=== PATIENT | male | born 1965 | race Caucasian/White ===

== ENCOUNTER 2020-02-19 13:02 | Inpatient (IN) ==
--- NOTE | 2020-02-19 13:44 | Emergency Department Note ---
History of Present Illness General Chief complaint: Cardiac Assessment Stated complaint: PT THINKS HE HAD A HEART ATTACK THIS MORNING Time Seen by Provider: 02/19/20 13:14 Source: patient Mode of arrival: ambulatory Limitations: no limitations History of Present Illness This patient is a 54-year-old male who presents to the emergency department for evaluation of an episode of chest pain which occurred this morning. Patient states that he was sitting at his computer about 5 hours ago when he developed chest pain and pressure with radiation into the back. He states he then developed a headache and jaw pain. Symptoms overall lasted 10 to 15 minutes. There was no shortness of breath or nausea/vomiting associated with the episode. He was not diaphoretic, although does note he typically has 2-3 episodes of excessive sweating daily. Patient denies any other episodes leading up to this. He is currently asymptomatic. Patient states he has been dealing with multiple infections over the past 6 months. He states he has been on 7 rounds of antibiotics and has been treated for bronchitis and pneumonia. He reports he has had persistent right-sided sore throat, various intermittent swelling of his lymph nodes and sinus pressure. The patient denies any recent fevers or cough. He reports he has some chronic shortness of breath due to his COPD and smoking. He denies any personal history of heart disease and is unaware of his family history. He does report a history of hypertension, hyperlipidemia and diabetes. Home Medications Home Medications Medication Instructions Recorded Confirmed Type amitriptyline 150 mg tablet 150 mg PO QPM 03/10/19 02/19/20 History fluoxetine 40 mg capsule 80 mg PO QAM cap 03/10/19 02/19/20 History fluticasone 100 mcg-salmeterol 50 1 puffs INH Q12H 03/10/19 02/19/20 History mcg/dose blistr powdr for inhalation fluticasone propionate 50 2 sprays INTNAS BID gm 03/10/19 02/19/20 History mcg/actuation nasal spray,suspension gabapentin 800 mg tablet 800 mg PO QID 03/10/19 02/19/20 History hydrochlorothiazide 25 mg tablet 25 mg PO QAM 03/10/19 02/19/20 History insulin lispro 100 unit/mL 12 units SQ TIDM 03/10/19 02/19/20 History subcutaneous cartridge losartan 50 mg tablet 50 mg PO QAM 03/10/19 02/19/20 History omeprazole 40 mg capsule,delayed 40 mg PO BID 03/10/19 02/19/20 History release pravastatin 20 mg tablet 20 mg PO QPM 03/10/19 02/19/20 History propranolol 10 mg tablet 20 mg PO BID 03/10/19 02/19/20 History tamsulosin 0.4 mg capsule 0.4 mg PO QPM cap 03/10/19 02/19/20 History Lantus U-100 Insulin 94 unit SUBCUT HS 09/30/19 02/19/20 History exenatide microspheres 2 mg SUBCUT Q7D 09/30/19 02/19/20 History Cannibis 0 mg INHALATION UD PRN 12/15/19 02/19/20 History ipratropium bromide [Atrovent HFA] 2 puff INHALATION QID 12/15/19 02/19/20 History metformin 1,000 mg PO BID 12/15/19 02/19/20 History aspirin 81 mg PO QAM 02/19/20 02/19/20 History lorazepam 0.5 mg PO BID PRN 02/19/20 02/19/20 History prednisone 60 mg PO DAILY 02/19/20 02/19/20 History tiotropium bromide [Spiriva with 1 cap INHALATION QAM 02/19/20 02/19/20 History HandiHaler] tramadol 50 mg PO Q6H PRN 02/19/20 02/19/20 History Allergies Allergy/AdvReac Type Severity Reaction Status Date / Time penicillin V Allergy Intermediate Severe Verified 02/19/20 13:53 Itching. Iodinated Contrast Media Allergy Unknown Difficulty Verified 02/19/20 13:53 [Iodinated Contrast- Oral Breathing and IV Dye] Penicillins Allergy Unknown ITCHINESS Verified 02/19/20 13:53 lisinopril Allergy Swelling Verified 02/19/20 13:53 of Lip/Tongue/Throat camphor AdvReac Intermediate SKIN Verified 02/19/20 13:53 IRRITATION WITH CHANDRA SALDANA gadobutrol AdvReac Intermediate SOB, Verified 02/19/20 13:53 HIVES, ITCHING, CHEST PAIN menthol AdvReac Intermediate SKIN Verified 02/19/20 13:53 IRRITATION WITH CHANDRA SALDANA methyl salicylate AdvReac Intermediate SKIN Verified 02/19/20 13:53 IRRITATION WITH CHANDRA SALDANA dapagliflozin [From Farxiga] AdvReac Rash Verified 02/19/20 13:53 mirtazapine [From Remeron] AdvReac Anxiety Verified 02/19/20 13:53 risperidone [From Risperdal] AdvReac Rash Verified 02/19/20 13:53 Carboxymethylcellulose AdvReac Intermediate SKIN Uncoded 02/19/20 13:53 IRRITATION WITH CHANDRA SALDANA Past Med/Surg History Medical History Acid reflux (Chronic) Anxiety Arthritis (Chronic) Cardiac murmur HX Chronic obstructive pulmonary disease Depression Diabetes (Chronic) Fibromyalgia (Chronic) Headache (Chronic) Heart disease (Chronic) High cholesterol (Chronic) History of hepatitis C (Resolved) TREATED-NO LONGER POSITIVE Hypertension (Chronic) Lumbago (Chronic) Meralgia paresthetica of both lower extremities (Acute) F/U DR KEELY GARZA GHBettye SOB (shortness of breath) on exertion STAIRS AND LONG DISTANCES FLAT SURFACES Temporal arteritis Tourette's (Chronic) Surgical History History of arthroscopy RIGHT KNEE History of colonoscopy History of esophagogastroduodenoscopy (EGD) Hx of hernia repair (Resolved) X 2 Social History Preferred Language: Cuban Communication Ability: Effective Administrative Associate Required: No Beliefs That Will Affect Care: Yazidi marital status: Current Living Situation: Spouse current occupational status: disabled Other Information That Helps Us Care for You: No Feels Safe at Home: Yes Safety Concerns: Feels Safe At This Time Smoking Status: Current every day smoker Tobacco Type: cigarettes ; Cigarettes Per Day: 40 ; Do You Dip or Chew Tobacco: No ; Second Hand Exposure: No ; Tobacco Cessation Education Requested by Patient: Yes Hx Alcohol Use: No Hx Substance Use: Yes substance use type: marijuana Substance Use Type Other:: SMOKES OR SUBLINGUAL MARIJUANA HS Last Used Substance: Days (ago) Review of Systems A total of 10 systems reviewed and were otherwise negative Physical Exam Vital Signs Vital Signs - 24 hr 02/19/20 13:07 02/19/20 13:32 02/19/20 15:00 Temperature 36.7 C Temperature Source Oral Pulse Rate 89 Pulse Rate [Apical] 84 Pulse Rhythm Regular Pulse Strength Normal Respiratory Rate 18 18 Respiratory Effort / Characteristics Non-Labored Spontaneous Non-Labored Respiratory Depth Normal Normal Respiratory Pattern Regular Blood Pressure 167/98 H Blood Pressure [Right Arm] 132/85 Blood Pressure Mean 121 Blood Pressure Mean [Right Arm] 100 Blood Pressure Position Lying Pulse Oximetry 96 96 95 Oxygen Delivery Method Room Air Room Air Room Air Sepsis Recent Fever Within 48 Hours No Sepsis Action Taken by Nursing No Action Required 02/19/20 16:26 Temperature Temperature Source Pulse Rate 83 Pulse Rate [Apical] Pulse Rhythm Pulse Strength Respiratory Rate 17 Respiratory Effort / Characteristics Respiratory Depth Respiratory Pattern Blood Pressure 146/82 H Blood Pressure [Right Arm] Blood Pressure Mean 100 Blood Pressure Mean [Right Arm] Blood Pressure Position Pulse Oximetry Oxygen Delivery Method Sepsis Recent Fever Within 48 Hours Sepsis Action Taken by Nursing VITALS: Vitals are noted on the nurse's note and reviewed by myself. Vital signs stable. GENERAL: This is a 54-year-old male, in no acute distress, well-developed well- nourished. SKIN: The skin was without rashes. EARS: External auditory canals clear, tympanic membranes pearly gilman without erythema or effusion bilaterally. EYES: Pupils equal round and reactive to light and accommodation. NOSE: Patent, turbinates without inflammation or discharge. MOUTH: Mucous membranes moist. Tonsils are not enlarged. Pharynx without erythema or exudate. NECK: Supple without nuchal rigidity. No lymphadenopathy. HEART: Regular rate and rhythm without murmurs gallops or rubs. LUNGS: Clear to auscultation bilaterally without wheezes, rales or rhonchi. No retractions or accessory muscle use. ABDOMEN: Obese abdomen, soft, nontender to palpation. NEURO: Patient was alert and oriented to person place and time. Course Consultations Consultation #1: Smiley Lala PA-C - [facility] hospitalist Administered Medications Amitriptyline HCl (Elavil) 150 mg PO QPM [facility] Stop: 03/20/20 20:59 Last Admin: 02/19/20 21:01 Dose: 150 mg Documented by: [id number] Famotidine (Pepcid) 20 mg PO BID [facility] Stop: 03/20/20 20:59 Last Admin: 02/19/20 21:01 Dose: 20 mg Documented by: [id number] Fluticasone Propionate (Flonase) 2 sprays WERO BID [facility] Stop: 03/20/20 20:59 Last Admin: 02/19/20 21:02 Dose: 2 sprays Documented by: [id number] Gabapentin (Neurontin) 800 mg PO QID [facility] Stop: 03/20/20 18:34 Last Admin: 02/19/20 21:11 Dose: 800 mg Documented by: [id number] Admin: 02/19/20 21:01 Dose: 800 mg Documented by: [id number] Insulin Aspart (Novolog Flexpen) 0 units SC ACHS [facility] Stop: 03/20/20 18:34 Last Admin: 02/19/20 21:17 Dose: Not Given Documented by: [id number] Cosigned by: [id number] Admin: 02/19/20 21:00 Dose: Not Given Documented by: [id number] Cosigned by: [id number] Insulin Glargine (Lantus) 60 units SC HS [facility] Stop: 03/20/20 20:59 Last Admin: 02/19/20 21:03 Dose: 60 units Documented by: [id number] Cosigned by: [id number] Ipratropium [place] (Atrovent Hfa) 2 puffs INH QID [facility] Stop: 03/20/20 18:34 Last Admin: 02/19/20 21:46 Dose: Not Given Documented by: [id number] Admin: 02/19/20 19:15 Dose: 2 puffs Documented by: [id number] Nicotine (Nicoderm Cq) 21 mg TD HS [facility] Stop: 03/20/20 20:59 Last Admin: 02/19/20 21:02 Dose: 21 mg Documented by: [id number] Pantoprazole Sodium (Protonix) 40 mg PO BID [facility] Stop: 03/20/20 20:59 Last Admin: 02/19/20 21:01 Dose: 40 mg Documented by: [id number] Pravastatin Sodium (Pravachol) 20 mg PO QPM [facility] Stop: 03/20/20 20:59 Last Admin: 02/19/20 21:01 Dose: 20 mg Documented by: [id number] Propranolol HCl (Inderal) 20 mg PO BID [facility] Stop: 03/20/20 20:59 Last Admin: 02/19/20 21:01 Dose: 20 mg Documented by: [id number] Tamsulosin HCl (Flomax) 0.4 mg PO QPM [facility] Stop: 03/20/20 20:59 Last Admin: 05/09/20 21:02 Dose: 0.4 mg Documented by: [id number] Tramadol HCl (Ultram) 50 mg PO Q6H PRN PRN Reason: Pain Stop: 03/20/20 18:34 Last Admin: 02/19/20 21:15 Dose: 50 mg Documented by: [id number] Medical Decision Making Differential Diagnosis Differential diagnosis includes acute coronary syndrome, pulmonary embolism, pneumothorax, pericarditis, myocarditis, endocarditis, anxiety, musculoskeletal pain, GERD, costochondritis, pneumonia, among others. Home Medications Current Medication List: was personally reviewed by me Laboratory Data Attestation: I reviewed the patient's lab results. Result diagrams: 02/19/20 13:30 02/19/20 13:30 Lab Results 02/19/20 02/19/20 02/19/20 Range/Units 13:30 13:30 13:30 WBC 11.97 H (4.8-10.8) K/uL RBC 4.77 (4.7-6.1) M/uL Hgb 13.9 L (14.0-18.0) g/dL Hct 42.8 (42-52) % MCV 89.7 (80-100) fL MCH 29.1 (25-34) pg MCHC 32.5 (32-36) g/dL RDW Std Deviation 52.1 H (36.4-46.3) fL RDW Coeff of June 16.1 H (11.5-14.5) % Plt Count 198 (130-400) K/uL MPV 9.4 (7.4-10.4) fL Immature Gran % (Auto) 3.2 % Neut % (Auto) 69.9 % Lymph % (Auto) 19.1 % Parmer % (Auto) 6.9 % Eos % (Auto) 0.6 % Baso % (Auto) 0.3 % Immature Gran # (Auto) 0.38 H (0.00-0.02) K/uL Neut # (Auto) 8.36 H (1.4-6.5) K/uL Lymph # (Auto) 2.29 (1.2-3.4) K/uL Parmer # (Auto) 0.83 H (0.11-0.59) K/uL Eos # (Auto) 0.07 (0-0.5) K/uL Baso # (Auto) 0.04 (0-0.2) K/uL Absolute Nucleated RBC 0.03 H (0-0) K/uL Nucleated RBC % (auto) 0.3 % PT 10.4 (9.0-12.0) Seconds INR 1.0 (0.9-1.1) APTT 23.4 (21.0-31.0) Seconds PTT Ratio 0.8 D-Dimer (0-500) ug/L FEU Sodium 137 (136-145) mmol/L Potassium 4.2 (3.5-5.1) mmol/L Chloride 99 (98-107) mmol/L Carbon Dioxide 29 (21-32) mmol/L Anion Gap 9.0 (3-11) BUN 11 (7-18) mg/dl Creatinine 0.96 (0.6-1.4) mg/dl Est Cr Clr Drug Dosing 101.9 ml/min Est GFR ( Amer) 102.0 Est GFR (Non-Af Amer) 88.0 BUN/Creatinine Ratio 11.8 (10-20) Glucose 146 H (70-99) mg/dl Calcium 9.0 (8.5-10.1) mg/dl Total Bilirubin 0.3 (0.2-1) mg/dl AST 25 (15-37) U/L ALT 69 (12-78) U/L Alkaline Phosphatase 104 (45-117) U/L Troponin I < 0.015 (0-0.045) ng/ml NT-Pro-B Natriuret Pep 63 (0-900) pg/ml Total Protein 7.5 (6.4-8.2) gm/dl Albumin 3.0 L (3.4-5.0) gm/dl Globulin 4.5 H (2.5-4.0) gm/dl Albumin/Globulin Ratio 0.7 L (0.9-2) 02/19/20 Range/Units 13:30 WBC (4.8-10.8) K/uL RBC (4.7-6.1) M/uL Hgb (14.0-18.0) g/dL Hct (42-52) % MCV (80-100) fL MCH (25-34) pg MCHC (32-36) g/dL RDW Std Deviation (36.4-46.3) fL RDW Coeff of June (11.5-14.5) % Plt Count (130-400) K/uL MPV (7.4-10.4) fL Immature Gran % (Auto) % Neut % (Auto) % Lymph % (Auto) % Parmer % (Auto) % Eos % (Auto) % Baso % (Auto) % Immature Gran # (Auto) (0.00-0.02) K/uL Neut # (Auto) (1.4-6.5) K/uL Lymph # (Auto) (1.2-3.4) K/uL Parmer # (Auto) (0.11-0.59) K/uL Eos # (Auto) (0-0.5) K/uL Baso # (Auto) (0-0.2) K/uL Absolute Nucleated RBC (0-0) K/uL Nucleated RBC % (auto) % PT (9.0-12.0) Seconds INR (0.9-1.1) APTT (21.0-31.0) Seconds PTT Ratio D-Dimer 230 (0-500) ug/L FEU Sodium (136-145) mmol/L Potassium (3.5-5.1) mmol/L Chloride (98-107) mmol/L Carbon Dioxide (21-32) mmol/L Anion Gap (3-11) BUN (7-18) mg/dl Creatinine (0.6-1.4) mg/dl Est Cr Clr Drug Dosing ml/min Est GFR ( Amer) Est GFR (Non-Af Amer) BUN/Creatinine Ratio (10-20) Glucose (70-99) mg/dl Calcium (8.5-10.1) mg/dl Total Bilirubin (0.2-1) mg/dl AST (15-37) U/L ALT (12-78) U/L Alkaline Phosphatase (45-117) U/L Troponin I (0-0.045) ng/ml NT-Pro-B Natriuret Pep (0-900) pg/ml Total Protein (6.4-8.2) gm/dl Albumin (3.4-5.0) gm/dl Globulin (2.5-4.0) gm/dl Albumin/Globulin Ratio (0.9-2) Imaging Data Attestation: I personally reviewed and interpreted this imaging study as follows: Radiologist's Impression: XR chest 1V portable CLINICAL HISTORY: 54 years-old Male presenting with chest pain. TECHNIQUE: Portable upright AP view of the chest was obtained. COMPARISON: 12/15/2019. FINDINGS: Cardiomediastinal silhouette normal. The prior left basilar patchy opacities have resolved. Minimal linear left mid to lower lung opacities remain. No large effusion or pneumothorax. Osseous structures normal. Upper abdomen normal. IMPRESSION: 1. Resolution of prior left basilar pneumonia. No new focal infiltrate. ECG Data Attestation: I personally reviewed and interpreted this ECG as follows: Indication: + chest pain Rate (beats per minute): 83 Rhythm: + normal sinus ECG Intervals/blocks: + Left anterior fascicular block and + Right Bundle branch block ECG ST segments: + Normal ST segments Change: no significant change Blood Pressure Blood Pressure Findings: Normal blood pressure MDM Narrative The patient is a 54-year-old male who presents today complaining of an episode of chest pain which occurred this morning. Pain is resolved now, but certainly the patient's history is concerning for a possible cardiac source. Patient has multiple risk factors including diabetes, hyperlipidemia, hypertension, obesity and smoking. Labs revealed no leukocytosis, anemia or concerning electrolyte abnormalities. Troponin was not elevated. Chest x-ray unremarkable. EKG with no obvious ischemic changes. Case was discussed with the [facility] hospitalist service, who agreed to evaluate the patient for further care. Impression & Plan Substernal chest pain Discharge Plan Visit Data *Final* Discharge Date/Time: 02/19/20 17:46 Chief Complaint: Cardiac Assessment Stated Complaint: PT THINKS HE HAD A HEART ATTACK THIS MORNING ED Provider: Manuel Owen ED Midlevel Provider: Aubree Theodore Discharge Problem: Substernal chest pain Patient Disposition: Admitted As Inpatient Discharge Instructions Interventions: ED Discharge Assessment Last Done: 02/19/20 17:46
[2020-02-19 13:47] LABS: Basophils # (auto) 0.04 K/uL (0-0.2); Basophils % (auto) 0.3 %; Eosinophils # (auto) 0.07 K/uL (0-0.5); Eosinophils % (auto) 0.6 %; Hematocrit (blood only) 42.8 % (42-52); Hemoglobin 13.9 g/dL (14.0-18.0); Immature Granulocytes # (auto) 0.38 K/uL (0.00-0.02); Immature Granulocytes % (auto) 3.2 %; Lymphocytes # (auto) 2.29 K/uL (1.2-3.4); Lymphocytes % (auto) 19.1 %; Mean Corpuscular Hemoglobin 29.1 pg (25-34); Mean Corpuscular Hgb Conc 32.5 g/dL (32-36); Mean Corpuscular Volume 89.7 fL (80-100); Mean Platelet Volume 9.4 fL (7.4-10.4); Monocytes # (auto) 0.83 K/uL (0.11-0.59); Monocytes % (auto) 6.9 %; Neutrophils # (auto) 8.36 K/uL (1.4-6.5); Neutrophils % (auto) 69.9 %; Nucleated RBC # (auto) 0.03 K/uL (0-0); Nucleated RBC % (auto) 0.3 %; Platelet Count 198 K/uL (130-400); RDW Coefficient of Variation 16.1 % (11.5-14.5); RDW Standard Deviation 52.1 fL (36.4-46.3); Red Blood Count 4.77 M/uL (4.7-6.1); White Blood Count 11.97 K/uL (4.8-10.8)
[2020-02-19 13:55] LABS: Alanine Aminotransferase 69 U/L (12-78); Aspartate Aminotransferase 25 U/L (15-37); BUN Creatinine Ratio 11.8 (10-20); Blood Urea Nitrogen 11 mg/dl (7-18); Carbon Dioxide 29 mmol/L (21-32); Chloride 99 mmol/L (98-107); Creatinine Clr Calc Pharmacy 101.9 ml/min; Glucose 146 mg/dl (70-99); Potassium 4.2 mmol/L (3.5-5.1); Sodium 137 mmol/L (136-145)
[2020-02-19 13:57] LABS: Partial Thromboplastin Ratio 0.8; Partial Thromboplastin Time 23.4 Seconds (21.0-31.0); Prothrombin Time 10.4 Seconds (9.0-12.0)
[2020-02-19 14:00] LABS: Albumin Globulin Ratio 0.7 (0.9-2); Alkaline Phosphatase 104 U/L (45-117); Bilirubin,Total 0.3 mg/dl (0.2-1); Globulin 4.5 gm/dl (2.5-4.0); Total Protein 7.5 gm/dl (6.4-8.2); Troponin I < 0.015 ng/ml (0-0.045)
--- NOTE | 2020-02-19 14:00 | XRay Report ---
XR chest 1V portable CLINICAL HISTORY: 54 years-old Male presenting with chest pain. TECHNIQUE: Portable upright AP view of the chest was obtained. COMPARISON: 12/15/2019. FINDINGS: Cardiomediastinal silhouette normal. The prior left basilar patchy opacities have resolved. Minimal l inear left mid to lower lung opacities remain. No large effusion or pneumothorax. Osseous structures normal. Upper abdomen normal. IMPRESSION: 1. Resolution of prior left basilar pneumonia. No new focal infiltrate. ACT 112: Negative or not required by law. Electronically signed by: Parker Scott M.D. 02/19/2020 1:58 PM
--- NOTE | 2020-02-19 15:59 | History & Physical Report ---
Date of Service February 19, 2020 Assessment & Plan (1) Chest pain: Atypical in nature but has a lot of risk factors for CAD-smoker, HTN, DMII, age, gender BNP and D-dimer both negative CXR nothing acute - Admit to tele - Trend cardiac biomarkers, initial set was negative - EKG reviewed as above showing RBBB but unchanged compared to previous EKG - Check 2 D echo - If negative enzymes can consider a stress test but he cannot exercise so would have to stay until Mon for Nuc Stress vs Dobutamine stress ECHO-defer to Cardiology on decision to perform -Daily EKG -Consult cardiology, Dr. Henning (2) Hypertension: BPs controlled -Continue aspirin 81 mg daily, losartan 50 mg, propranolol, previously was on 20 mg twice daily-- reports this has recently been increased but is unsure what the dose is. (3) High cholesterol: -Recheck lipid panel with a.m. labs -Continue pravastatin 20 mg every afternoon (4) Diabetes: -Type 2 - Rechecking A1c with am labs -Holding metformin, continue Lantus but will lower the dose while here as most patients eat healthier in hospital and lowering dose of daily prednisone to 40mg -ISS with Accu-Cheks ACHS (5) History of hepatitis C: -Resolved, treated. (6) Acid reflux: -History of such (7) Fibromyalgia: -Chronic - Smokes marijuana for chronic pain and anxiety daily, has prescription -continue ELavil 150mg qhs, tramadol prn (8) Temporal arteritis: Suspected dx in early December and started on prednisone 60mg but never had TA bx and no improvement in symptoms of headache, jaw pain -Having lot of side effects of prednisone, wants to taper down; has been on an extremely high dose for 2 months -recommend outpt f/u with Rheum-he used to see Dr. Cazares in [place] -check ESR in AM -reduce prednisone to 40mg daily (9) Anxiety: - Smokes marijuana for chronic pain and anxiety daily, has prescription -continue fluoxetine, ativan prn (10) Depression: -Continue fluoxetine 80 mg every morning (11) Chronic obstructive pulmonary disease: -Continue Spiriva, LABA/ICS, does not wear O2 at baseline (12) Tobacco use: -Continues to smoke 1.5 pack/day, cessation was encouraged, will order a nicotine patch -previously tried Chantix felt was worsening his depression. (13) Morbid obesity with BMI of 40.0-44.9, adult: -Diet and exercise to be encouraged upon discharge - heart healthy/diabetic diet -BMI 40.6 (14) Sore throat: chronic for 4-6 months, more right sided Has taken multiple rounds of abx and does not have signs of infection Given prednisone use, morbid obesity, heavy smoking history, and h/o GERD, likely 2/2 acid reflux and/or allergic rhinitis -add on Pepcid 20mg bid -encouraged smoking cessation -continue PPI bid -f/u with ENT outpt -continue FLonase -check CT neck given h/o heavy cigarette use (15) Headache: chronic, not improved with high dose prednisone -taper down prednisone -tramadol prn f/u outpt has a h/o demyelinating lesions on MRI and has not been seen by Neuro in years- f/u with Neuro as outpt (16) Tourette's: -Chronic (17) DVT prophylaxis: - teds CODE: Full code Dispo: From home, likely to remain in the hospital x 1-2 days History of Present Illness Chief Complaint: Chest pain Primary Care Provider: José Osullivan, This is a 54-year-old male with PMHx of HTN, HLD, DM type II, suspected temporal arteritis on long-term steroids, COPD, tobacco use, history of hepatitis C now resolved, GERD, anxiety, depression, Tourette's syndrome, fibromyalgia who presents with acute crushing substernal and left-sided chest pain radiating to the back and up into the bilateral which occurred this morning and lasted for approximately 15 minutes. He was sitting at the computer session around 8 am when this occurred. He had not been previously doing anything strenuous and leads a fairly sedentary lifestyle. It went away with lying down to rest. He has had this happen before but not as extreme in the past, however the patient cannot quantify or name the timeframe. He denies any family history as he has only recently reconnected with his biological mother within the last 6 months, and the only thing he knows about his father is that "he left and is a complete dickhead". He does not know any biological siblings. He mentions that he has been being treated for a sinus infection for the last 3- 4 months, and has gone through 4 rounds of antibiotics. He is finishing his last day of Augmentin x10 days tonight. He reports there is no symptom improvement and still has a sore throat. He had a MRI of the brain conducted in the middle of December however this was negative for findings consistent with sinusitis. Patient also reports having other issues such as fibromyalgia and chronic pain at baseline. His anxiety has been much worse in light of COVID-19. Patient does not exercise at baseline. He smokes cigarettes 1.5 PPD x45 years and uses marijuana daily for anxiety, has a prescription for such. He has taken all his normally scheduled medication. Allergies Allergy/AdvReac Type Severity Reaction Status Date / Time penicillin V Allergy Intermediate Severe Verified 02/19/20 13:53 Itching. Iodinated Contrast Media Allergy Unknown Difficulty Verified 02/19/20 13:53 [Iodinated Contrast- Oral Breathing and IV Dye] Penicillins Allergy Unknown ITCHINESS Verified 02/19/20 13:53 lisinopril Allergy Swelling Verified 02/19/20 13:53 of Lip/Tongue/Throat camphor AdvReac Intermediate SKIN Verified 02/19/20 13:53 IRRITATION WITH CHANDRA SALDANA gadobutrol AdvReac Intermediate SOB, Verified 02/19/20 13:53 HIVES, ITCHING, CHEST PAIN menthol AdvReac Intermediate SKIN Verified 02/19/20 13:53 IRRITATION WITH CHANDRA SALDANA methyl salicylate AdvReac Intermediate SKIN Verified 02/19/20 13:53 IRRITATION WITH CHANDRA SALDANA dapagliflozin [From Farxiga] AdvReac Rash Verified 02/19/20 13:53 mirtazapine [From Remeron] AdvReac Anxiety Verified 02/19/20 13:53 risperidone [From Risperdal] AdvReac Rash Verified 02/19/20 13:53 Carboxymethylcellulose AdvReac Intermediate SKIN Uncoded 02/19/20 13:53 IRRITATION WITH CHANDRA SALDANA Home Medications Home Medications Medication Instructions Recorded Confirmed Type amitriptyline 150 mg tablet 150 mg PO QPM 03/10/19 02/19/20 History fluoxetine 40 mg capsule 80 mg PO QAM cap 03/10/19 02/19/20 History fluticasone 100 mcg-salmeterol 50 1 puffs INH Q12H 03/10/19 02/19/20 History mcg/dose blistr powdr for inhalation fluticasone propionate 50 2 sprays INTNAS BID gm 03/10/19 02/19/20 History mcg/actuation nasal spray,suspension gabapentin 800 mg tablet 800 mg PO QID 03/10/19 02/19/20 History hydrochlorothiazide 25 mg tablet 25 mg PO QAM 03/10/19 02/19/20 History insulin lispro 100 unit/mL 12 units SQ TIDM 03/10/19 02/19/20 History subcutaneous cartridge losartan 50 mg tablet 50 mg PO QAM 03/10/19 02/19/20 History omeprazole 40 mg capsule,delayed 40 mg PO BID 03/10/19 02/19/20 History release pravastatin 20 mg tablet 20 mg PO QPM 03/10/19 02/19/20 History propranolol 10 mg tablet 20 mg PO BID 03/10/19 02/19/20 History tamsulosin 0.4 mg capsule 0.4 mg PO QPM cap 03/10/19 02/19/20 History Lantus U-100 Insulin 94 unit SUBCUT HS 09/30/19 02/19/20 History exenatide microspheres 2 mg SUBCUT Q7D 09/30/19 02/19/20 History Cannibis 0 mg INHALATION UD PRN 12/15/19 02/19/20 History ipratropium bromide [Atrovent HFA] 2 puff INHALATION QID 12/15/19 02/19/20 History metformin 1,000 mg PO BID 12/15/19 02/19/20 History aspirin 81 mg PO QAM 02/19/20 02/19/20 History lorazepam 0.5 mg PO BID PRN 02/19/20 02/19/20 History prednisone 60 mg PO DAILY 02/19/20 02/19/20 History tiotropium bromide [Spiriva with 1 cap INHALATION QAM 02/19/20 02/19/20 History HandiHaler] tramadol 50 mg PO Q6H PRN 02/19/20 02/19/20 History Past Med/Surg History Medical History (Updated 02/19/20 @ 19:46 by Amalia Juárez MD) Acid reflux (Chronic) Anxiety Arthritis (Chronic) Cardiac murmur HX Chronic obstructive pulmonary disease Depression Diabetes (Chronic) Fibromyalgia (Chronic) Headache (Chronic) Heart disease (Chronic) High cholesterol (Chronic) History of hepatitis C (Resolved) TREATED-NO LONGER POSITIVE Hypertension (Chronic) Lumbago (Chronic) Meralgia paresthetica of both lower extremities (Acute) F/U DR KEELY GARZA GHBettye SOB (shortness of breath) on exertion STAIRS AND LONG DISTANCES FLAT SURFACES Temporal arteritis Tourette's (Chronic) Surgical History History of arthroscopy RIGHT KNEE History of colonoscopy History of esophagogastroduodenoscopy (EGD) Hx of hernia repair (Resolved) X 2 Social History Preferred Language: Macedonian Communication Ability: Effective Software Specialist Required: No Beliefs That Will Affect Care: Jew marital status: Current Living Situation: Spouse current occupational status: disabled Other Information That Helps Us Care for You: No Feels Safe at Home: Yes Safety Concerns: Feels Safe At This Time Smoking Status: Current every day smoker Tobacco Type: cigarettes ; Cigarettes Per Day: 40 ; Do You Dip or Chew Tobacco: No ; Second Hand Exposure: No ; Tobacco Cessation Education Requested by Patient: Yes Hx Alcohol Use: No Hx Substance Use: Yes substance use type: marijuana Substance Use Type Other:: SMOKES OR SUBLINGUAL MARIJUANA HS Last Used Substance: Days (ago) Review of Systems Review of Systems: Constitutional: No fever, sweats or chills Eyes: No diplopia, no worsening or blurred vision ENT: normal hearing, no trouble swallowing, + sore throat Respiratory: + occasional cough, no sputum, + dyspnea on exertion Cardiovascular: As per HPI. Currently no chest pain, tightness or palpitations Abdomen: No pain, nausea, vomiting, diarrhea or constipation Musculoskeletal: + chronic joint pain, calf pain, swelling Neurologic: No weakness, numbness/tingling, or balance problems Psychiatric: No anxiety or depression Skin: No rash or itch Physical Exam Physical Exam: General: awake, alert, no apparent distress, + appears red faced, + multiple tattoos over upper extremities and chest Head: Normocephalic, atraumatic ENT: PERRL, EOMI, no pharyngeal exudate, no erythema or white exudate or thrush, mucous membranes moist, no pain elicited with maxillary sinus palpation Chest: Clear to auscultation, on room air, no adventitious breath sounds, + pain redemonstrated with palpation of chest anteriorly Cardiac: Regular rate and rhythm, no murmur, unable to assess JVD due to body habitus, normal peripheral pulses, good capillary refill Abdominal: NABS x 4 quadrants, + distended, + vertical scar going down mid abdomen ( s/p hernia repair), soft, nontender to palpation, no rebound, guarding or tenderness Extremities: Normal inspection, no peripheral edema or erythema, calfs nontender to palpation Psych: Normal mood and affect Neuro: AAO x 3, strength intact bilaterally and rated 5/5, no motor deficits, speech is clear, no peripheral sensory deficits Results & Data Results & Data ([facility]) Vital Signs (Past 12 Hours) Vital Signs Temp Pulse Pulse Resp BP BP Pulse Ox 02/19/20 15:00 84 18 132/85 95 02/19/20 13:32 96 02/19/20 13:07 36.7 C 89 18 167/98 H 96 Laboratory Results 02/19/20 02/19/20 02/19/20 Range/Units 13:30 13:30 13:30 WBC (4.8-10.8) K/uL RBC (4.7-6.1) M/uL Hgb (14.0-18.0) g/dL Hct (42-52) % MCV (80-100) fL MCH (25-34) pg MCHC (32-36) g/dL RDW Std Deviation (36.4-46.3) fL RDW Coeff of June (11.5-14.5) % Plt Count (130-400) K/uL MPV (7.4-10.4) fL Immature Gran % (Auto) % Neut % (Auto) % Lymph % (Auto) % Marin % (Auto) % Eos % (Auto) % Baso % (Auto) % Immature Gran # (Auto) (0.00-0.02) K/uL Neut # (Auto) (1.4-6.5) K/uL Lymph # (Auto) (1.2-3.4) K/uL Marin # (Auto) (0.11-0.59) K/uL Eos # (Auto) (0-0.5) K/uL Baso # (Auto) (0-0.2) K/uL Absolute Nucleated RBC (0-0) K/uL Nucleated RBC % (auto) % PT 10.4 (9.0-12.0) Seconds INR 1.0 (0.9-1.1) APTT 23.4 (21.0-31.0) Seconds PTT Ratio 0.8 D-Dimer 230 (0-500) ug/L FEU Sodium 137 (136-145) mmol/L Potassium 4.2 (3.5-5.1) mmol/L Chloride 99 (98-107) mmol/L Carbon Dioxide 29 (21-32) mmol/L Anion Gap 9.0 (3-11) BUN 11 (7-18) mg/dl Creatinine 0.96 (0.6-1.4) mg/dl Est Cr Clr Drug Dosing 101.9 ml/min Est GFR ( Amer) 102.0 Est GFR (Non-Af Amer) 88.0 BUN/Creatinine Ratio 11.8 (10-20) Glucose 146 H (70-99) mg/dl Calcium 9.0 (8.5-10.1) mg/dl Total Bilirubin 0.3 (0.2-1) mg/dl AST 25 (15-37) U/L ALT 69 (12-78) U/L Alkaline Phosphatase 104 (45-117) U/L Troponin I < 0.015 (0-0.045) ng/ml NT-Pro-B Natriuret Pep 63 (0-900) pg/ml Total Protein 7.5 (6.4-8.2) gm/dl Albumin 3.0 L (3.4-5.0) gm/dl Globulin 4.5 H (2.5-4.0) gm/dl Albumin/Globulin Ratio 0.7 L (0.9-2) 02/19/20 Range/Units 13:30 WBC 11.97 H (4.8-10.8) K/uL RBC 4.77 (4.7-6.1) M/uL Hgb 13.9 L (14.0-18.0) g/dL Hct 42.8 (42-52) % MCV 89.7 (80-100) fL MCH 29.1 (25-34) pg MCHC 32.5 (32-36) g/dL RDW Std Deviation 52.1 H (36.4-46.3) fL RDW Coeff of June 16.1 H (11.5-14.5) % Plt Count 198 (130-400) K/uL MPV 9.4 (7.4-10.4) fL Immature Gran % (Auto) 3.2 % Neut % (Auto) 69.9 % Lymph % (Auto) 19.1 % Marin % (Auto) 6.9 % Eos % (Auto) 0.6 % Baso % (Auto) 0.3 % Immature Gran # (Auto) 0.38 H (0.00-0.02) K/uL Neut # (Auto) 8.36 H (1.4-6.5) K/uL Lymph # (Auto) 2.29 (1.2-3.4) K/uL Marin # (Auto) 0.83 H (0.11-0.59) K/uL Eos # (Auto) 0.07 (0-0.5) K/uL Baso # (Auto) 0.04 (0-0.2) K/uL Absolute Nucleated RBC 0.03 H (0-0) K/uL Nucleated RBC % (auto) 0.3 % PT (9.0-12.0) Seconds INR (0.9-1.1) APTT (21.0-31.0) Seconds PTT Ratio D-Dimer (0-500) ug/L FEU Sodium (136-145) mmol/L Potassium (3.5-5.1) mmol/L Chloride (98-107) mmol/L Carbon Dioxide (21-32) mmol/L Anion Gap (3-11) BUN (7-18) mg/dl Creatinine (0.6-1.4) mg/dl Est Cr Clr Drug Dosing ml/min Est GFR ( Amer) Est GFR (Non-Af Amer) BUN/Creatinine Ratio (10-20) Glucose (70-99) mg/dl Calcium (8.5-10.1) mg/dl Total Bilirubin (0.2-1) mg/dl AST (15-37) U/L ALT (12-78) U/L Alkaline Phosphatase (45-117) U/L Troponin I (0-0.045) ng/ml NT-Pro-B Natriuret Pep (0-900) pg/ml Total Protein (6.4-8.2) gm/dl Albumin (3.4-5.0) gm/dl Globulin (2.5-4.0) gm/dl Albumin/Globulin Ratio (0.9-2) Diagnostic Findings XR chest 1V portable CLINICAL HISTORY: 54 years-old Male presenting with chest pain. TECHNIQUE: Portable upright AP view of the chest was obtained. COMPARISON: 12/15/2019. FINDINGS: Cardiomediastinal silhouette normal. The prior left basilar patchy opacities have resolved. Minimal linear left mid to lower lung opacities remain. No large effusion or pneumothorax. Osseous structures normal. Upper abdomen normal. IMPRESSION: 1. Resolution of prior left basilar pneumonia. No new focal infiltrate. ACT 112: Negative or not required by law. Electronically signed by: Parker Scott M.D. 02/19/2020 1:58 PM ECG Additional Comments: 19-FEB-2020 13:18:14 [facility]-EDSTAT ROUTINE RETRIEVAL Normal sinus rhythm Possible Left atrial enlargement Right bundle branch block Left anterior fascicular block Bifascicular block Abnormal ECG When compared with ECG of 15-DEC-2019 13:46, No significant change was found 25mm/s 10mm/mV 150Hz 9.0.9 12SL 241 ANTHONY: 16 Referred by: PROTOCOL Unconfirmed Vent. rate 83 BPM NH interval 170 ms QRS duration 126 ms QT/QTc 378/444 ms P-R-T axes 71 -61 58 Code Status & VTE Plan Code Status Full code -discussed with patient at bedside Supervising Physician Co-Signing Physician Notes PA Supervision Note: I personally saw and examined the patient. I verified all bailey points and agree with THADDEUS Lala with the following exceptions and/or additions: Additions/Changes made to A/P as above Pt here with atypical chest pain with lots of risk factors, ongoing chronic issues as well. History and ROS reviewed Vitals reviewed Morbidly obese, smells of cigarettes Anicteric sclerae, EOMI, OP clear, mild erythema throughout posterior oropharynx, no masses seen, with large tongue Neck +TTP mild over rt anterior neck, no AMBIKA palpable RRR no mgr Lungs diminished throughout, occasional wheeze and rhonchus Abd obese, +BS, soft NT ND Ext no edema Skin no rashes 54 yo male here with atypical chest pain, other comorbidities -plan notated and changed as above PG Care Time/CCT Total # of Minutes Spent Total Time Spent with Patient: Total time spent is greater than 50% in coordination of care (as documented) at patient's floor/unit and/or counseling patient: Coding Level of Care Code 35683 Initial Inpt Care Lvl 3 Diagnoses Chest pain R07.9 Hypertension I10 High cholesterol E78.00 Diabetes E11.9 History of hepatitis C Z86.19 Acid reflux K21.9 Fibromyalgia M79.7 Temporal arteritis M31.6 Anxiety F41.9 Depression F32.9 Chronic obstructive pulmonary disease J44.9 Tobacco use Z72.0 Morbid obesity with BMI of 40.0-44.9, adult E66.01; Z68.41 Sore throat J02.9 Headache R51 Tourette's F95.2 DVT prophylaxis Z29.9
[2020-02-19 17:16] LABS: D Dimer 230 ug/L FEU (0-500); NT Pro B Type Natriuretic Pept 63 pg/ml (0-900)
[2020-02-19] MEDS ORDERED: GLUCOSE 40% GEL 15 GM TUBE PO PRN (18:35)
[2020-02-19] MEDS ORDERED: ONDANSETRON INJ 2 MG/ML 2 ML VIAL IV PRN (18:35)
[2020-02-19] MEDS ORDERED: CARBOHYDRATES FOR HYPOGLYCEMIA PO PRN (18:35)
[2020-02-19] MEDS ORDERED: GLUCOSE 10 TABS/TUBE PO PRN (18:35)
[2020-02-19] MEDS ORDERED: INSULIN LISPRO 12 UNIT SQ SCH (18:35)
[2020-02-19] MEDS ORDERED: GLUCAGON FOR INJ 1 MG VIAL SQ PRN (18:35)
[2020-02-19] MEDS ORDERED: ACETAMINOPHEN 325 MG TAB PO PRN (18:35)
[2020-02-19] MEDS ORDERED: LORazepam 0.5 MG TAB PO PRN (18:35)
[2020-02-19] MEDS ORDERED: DEXTROSE 50% 50 ML SYRINGE IV PRN (18:35)
[2020-02-19] MEDS ORDERED: TRAMADOL HCL 50 MG TABLET PO PRN (18:35)
[2020-02-19] MEDS: IPRATROPIUM BROMIDE HFA INHALER INH SCH ×2 (19:15→21:46)
--- NOTE | 2020-02-19 20:26 | CT Scan Report ---
CT soft tissue neck wo con CLINICAL HISTORY: 54 years-old Male presenting with right sided throat pain x 2 months,heavy smoker. TECHNIQUE: Multidetector CT of the neck was performed without the use of intravenous contrast. IV con trast: None. One or more dose lowering techniques were used consistent with the principles of ALARA ( as low as reasonably achievable), including automatic exposure control, mA or kV adjustment to indivi dual patient size, and/or use of iterative reconstruction. COMPARISON: 02/06/2013. CT DOSE (mGy.cm): The estimated cumulative dose is 1310.21 mGy.cm. FINDINGS: Oyster Planter topogram: Unremarkable. Limited intracranial evaluation within normal limits. Paranasal sinuses and mastoid air cells clear. Mild degenerative changes of the cervical spine. Patchy groundglass opacities in the left apex, new f rom prior. Minimal similar patchy groundglass in the right upper lobe. Evaluation of the soft tissues of the neck is limited by lack of intravenous contrast. Allowing for t his, no lymphadenopathy. Superior mediastinum is normal. No effacement along the aerodigestive tract. Small right jugulodigastric lymph node is noted, which is not pathologically enlarged (series 3 imag e 145). No evidence of a soft tissue mass. No enlargement of the lingual or palatine tonsils. Aerated secretions noted in the nasopharynx. The nasal cavity is clear. Thyroid, submandibular, and parotid glands normal. Orbits normal. IMPRESSION: 1. Allowing for noncontrast technique, no gross evidence of a soft tissue mass or abnormality of the pharynx. No lymphadenopathy. ACT 112: Negative or not required by law. Electronically signed by: Parker Scott M.D. 02/19/2020 8:25 PM
--- NOTE | 2020-02-19 20:29 | CT Scan Report ---
CT sinus wo con CLINICAL HISTORY: 54 years-old Male presenting with chronic sinusitis, history of heavy smoking, righ t-sided throat pain for 2 months, swelling in the right neck. TECHNIQUE: Multidetector CT of the sinuses was performed without the use of intravenous contrast. IV contrast: None. One or more dose lowering techniques were used consistent with the principles of ALAR A (as low as reasonably achievable), including automatic exposure control, mA or kV adjustment to ind ividual patient size, and/or use of iterative reconstruction. COMPARISON: 02/04/2013. CT DOSE (mGy.cm): The estimated cumulative dose is 1310.21. FINDINGS: Shop Steward topogram: Unremarkable. Paranasal sinuses and mastoid air cells clear. Middle ears clear.. Secretions in the nasopharynx. Fabien al cavity clear. Nasofrontoethmoidal recesses and ostiomeatal units patent. No osseous erosion or scl erosis of the sinus hernandez. Bony nasal septum minimally deviated to the right. No osseous dehiscence o f the bone optic canals or carotid siphons. Limited intracranial evaluation within normal limits. Orbits normal. Upper facial soft tissues of the face within normal limits. IMPRESSION: 1. No evidence of acute or chronic sinusitis at this time. 2. No significant anatomic variant. ACT 112: Negative or not required by law. Electronically signed by: Parker Scott M.D. 02/19/2020 8:28 PM
[2020-02-19] MEDS: INSULIN ASPART 100 UNITS/ML 3 ML PEN SC SCH ×2 (21:00→21:17)
[2020-02-19] MEDS ORDERED: TAMSULOSIN HCL 0.4 MG CAP PO SCH (21:00)
[2020-02-19] MEDS ORDERED: INSULIN GLARGINE 100 UNIT/ML VIAL SC SCH ×2 (21:00)
[2020-02-19] MEDS ORDERED: NICOTINE 21 MG/24 HR TDSY TD SCH (21:00)
[2020-02-19] MEDS ORDERED: PRAVASTATIN SOD 20 MG TAB PO SCH (21:00)
[2020-02-19] MEDS ORDERED: AMITRIPTYLINE HCL 50 MG TAB PO SCH (21:00)
[2020-02-19] MEDS ORDERED: GABAPENTIN 800 MG TAB PO SCH (21:00)
[2020-02-19] MEDS: PROPRANOLOL HCL 20 MG TAB PO SCH (21:01)
[2020-02-19] MEDS: GABAPENTIN 800 MG TAB PO SCH ×2 (21:01→21:11)
[2020-02-19] MEDS: PANTOprazole 40 MG TAB PO SCH (21:01)
[2020-02-19] MEDS: FAMOTIDINE 20 MG TAB PO SCH (21:01)
[2020-02-19] MEDS: FLUTICASONE PROPIONATE NA SPR 16 GM BTL NAE SCH (21:02)
--- NOTE | 2020-02-19 22:47 | Electrocardiogram Report ---
Test Reason : Blood Pressure : / mmHG Vent. Rate : 083 BPM Atrial Rate : 083 BPM P-R Int : 170 ms QRS Dur : 126 ms QT Int : 378 ms P-R-T Axes : 071 -61 058 degrees QTc Int : 444 ms Normal sinus rhythm Possible Left atrial enlargement Right bundle branch block Left anterior fascicular block Bifascicular block Abnormal ECG When compared with ECG of 15-DEC-2019 13:46, No significant change was found Confirmed by Dustin Henning ([id number]) on 02/19/2020 10:47:38 PM Referred By: PROTOCOL Confirmed By:Dustin Henning
[2020-02-20 04:00] LABS: Hematocrit (blood only) 41.2 % (42-52); Hemoglobin 13.3 g/dL (14.0-18.0); Mean Corpuscular Hemoglobin 29.2 pg (25-34); Mean Corpuscular Hgb Conc 32.3 g/dL (32-36); Mean Corpuscular Volume 90.5 fL (80-100); Mean Platelet Volume 8.9 fL (7.4-10.4); Platelet Count 177 K/uL (130-400); RDW Coefficient of Variation 16.5 % (11.5-14.5); RDW Standard Deviation 53.6 fL (36.4-46.3); Red Blood Count 4.55 M/uL (4.7-6.1); White Blood Count 11.57 K/uL (4.8-10.8)
[2020-02-20 04:30] LABS: Albumin Level 2.7 gm/dl (3.4-5.0); BUN Creatinine Ratio 11.2 (10-20); Calcium 9.4 mg/dl (8.5-10.1); Creatinine Clr Calc Pharmacy 108.2 ml/min; Est GFR (African American) 110.3; Est GFR (Non-African American) 95.1; Potassium 3.7 mmol/L (3.5-5.1)
[2020-02-20 04:33] LABS: Albumin Globulin Ratio 0.7 (0.9-2); Bilirubin,Total 0.3 mg/dl (0.2-1); Globulin 4.1 gm/dl (2.5-4.0); Total Protein 6.8 gm/dl (6.4-8.2)
[2020-02-20] MEDS: IPRATROPIUM BROMIDE HFA INHALER INH SCH ×2 (07:15→10:58)
[2020-02-20] MEDS: GABAPENTIN 800 MG TAB PO SCH ×2 (08:24→12:18)
[2020-02-20] MEDS: FAMOTIDINE 20 MG TAB PO SCH (08:25)
[2020-02-20] MEDS: PROPRANOLOL HCL 20 MG TAB PO SCH (08:25)
[2020-02-20] MEDS: PANTOprazole 40 MG TAB PO SCH (08:25)
[2020-02-20] MEDS: FLUTICASONE PROPIONATE NA SPR 16 GM BTL NAE SCH (08:26)
[2020-02-20] MEDS: INSULIN ASPART 100 UNITS/ML 3 ML PEN SC SCH ×2 (08:28→12:05)
[2020-02-20] MEDS ORDERED: ASPIRIN 81 MG ECTAB PO SCH (09:00)
[2020-02-20] MEDS ORDERED: FLUOXETINE HCL 20 MG CAP PO SCH (09:00)
[2020-02-20] MEDS ORDERED: LOSARTAN POTASSIUM 50 MG TAB PO SCH (09:00)
[2020-02-20] MEDS ORDERED: FLUTICASONE/VILANTEROL 100/25MCG 14 PUFFS/INHALER INH SCH (09:00)
[2020-02-20] MEDS ORDERED: hydroCHLOROthiazide 25 MG TAB PO SCH (09:00)
[2020-02-20] MEDS ORDERED: UMECLIDINIUM BROMIDE 62.5MCG/BLISTER 7 PUFFS/INHALER INH SCH (09:00)
[2020-02-20] MEDS ORDERED: predniSONE 20 MG TAB PO SCH ×2 (09:00)
--- NOTE | 2020-02-20 11:00 | XCELERA ---
[id number]
--- NOTE | 2020-02-20 11:14 | CT Scan Report ---
CT OF THE CHEST WITHOUT IV CONTRAST CLINICAL HISTORY: groundglass opacities,chronic cough,chest pain COMPARISON STUDY: Chest CT October 11, 2019. Chest radiograph February 29, 2020. CT DOSE: 713.08 mGy.cm TECHNIQUE: Axial images of the chest were obtained without IV contrast. Images were reviewed in the axial, sagittal, and coronal planes. IV contrast was not administered for this examination. Automat ed exposure control was utilized for the study. A dose lowering technique was utilized adhering to t he principles of ALARA. FINDINGS: No enlarged axillary, mediastinal or hilar lymph nodes are present. The size of the heart is normal. There is no pericardial effusion. The central airways are patent. There is no pneumothorax or pleural effusion. There are mild peripheral predominant groundglass opacities within the upper lo bes. In addition, note is made of mild right lower lobe and moderate left lower lobe alveolar opaciti es, predominantly tree-in-bud. No cavitation is present. Central airways are patent. There is mild em physema. Bony thorax is unremarkable. Visualized portions of the upper abdomen demonstrate severe fat ty infiltration of the liver. IMPRESSION: 1. Mild bilateral lower lobe predominant tree-in-bud opacities and upper lobe predominant groundglass opacities. These findings suggest an infectious process. 2. Mild emphysema. 3. No pleural effusion. No pneumothorax. ACT 112: Negative or not required by law. Electronically signed by: Rolf Chan M.D. 02/20/2020 11:13 AM
[2020-02-20] MEDS ORDERED: IPRATROPIUM BROMIDE HFA INHALER INH SCH (15:00)
--- NOTE | 2020-02-20 15:29 | Cardiology Consultation ---
Date of Consultation February 20, 2020 Assessment & Plan (1) Substernal chest pain: (2) Tobacco use: (3) Hypertension: ASSESSMENT/PLAN: 1. Chest pain: Chest pain is atypical for ischemic heart disease. He does have multiple risk factors however. Recommend noninvasive ischemic evaluation. Myocardial perfusion study will be ordered to be done as an outpatient. We discussed potentially staying overnight have it done tomorrow, but he prefers to go home, which is not unreasonable for his 1 episode of atypical chest discomfort. He was advised that he should call 911 for recurrence. Other possible etiologies include GI or pulmonary given history of acid reflux, on prednisone, and also abnormal CT scan findings. Will defer further evaluation to primary hospitalist service and PCP. 2. Tobacco abuse: Smoking cessation recommended. 3. Hypertension: Blood pressure has been mostly normotensive with some periodic mild hypertension. Continue home medications for now. Further adjustments can be made as an outpatient by his PCP as appropriate. 4. Disposition: Can be discharged home from a cardiac perspective. Outpatient myocardial perfusion study will be arranged. He can follow up with Cardiology on an as-needed basis, pending myocardial perfusion study findings. Plan of care discussed with primary hospitalist, Dr. Juárez. Thank you for allowing me to participate in the care of your patient. Please call for any other questions or concerns. Sincerely, Alek Henning M.D. History of Present Illness Reason for Consultation: Chest pain Requesting Physician: Dr. Juárez Attending Physician: Amalia Juárez MD History of Present Illness Mr. Hall is a pleasant 54-year-old gentleman with history significant for insulin-dependent diabetes (type 2 DM), hypertension, dyslipidemia, COPD, hepatitis-C (treated), GERD, Tourette's syndrome, fibromyalgia, and suspected/possible temporal arteritis. He presented to [facility] on 02/19/2020 with chest discomfort. He has experienced 2 or 3 episodes of chest discomfort over the years similar to yesterday's event, but yesterday's event was more significant/severe. While sitting at his table, he had sub sternal chest discomfort described as a sharpness that radiated through to his back. He also noted a headache and developed jaw pain and shortness of breath. He does not recall any diaphoresis. The pain spontaneously resolved within 15-20 minutes. He has not had any other recurrent chest discomfort. He admits that all of his bones hurt with any type of palpation but this is chronic. He describes himself as sedentary. When asked why he does not exercise he states that he is lazy. He does walk through the grocery store and did so 2 days ago without chest discomfort. He denies edema, palpitations, or bleeding such as melena, hematochezia, or hematuria. He has chronic tussive syncope but otherwise denies any other syncope. He states that his last stress test was approximately 20 years ago. He has not undergone cardiac catheterization. He has been on prednisone 60 mg for greater than 2 months for suspected temporal arteritis. He is currently without chest pain. Review of systems: As above. Review of systems otherwise negative/unremark able. Family history: He was adopted and therefore does not know his full family history. He had his first contact with his biologic family in 2019. Social history: He smokes 1.5 packs per day and has smoked up to 3 packs per day. He started smoking at the age of 9. He no longer consumes alcohol. 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 He is but he and his live in separate houses. He lives in a camper next door to his , who lives in a house. He has no children. He has been on disability since 2007. 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 He is unaccompanied. Allergies Allergy/AdvReac Type Severity Reaction Status Date / Time penicillin V Allergy Intermediate Severe Verified 02/19/20 13:53 Itching. Iodinated Contrast Media Allergy Unknown Difficulty Verified 02/19/20 13:53 [Iodinated Contrast- Oral Breathing and IV Dye] Penicillins Allergy Unknown ITCHINESS Verified 02/19/20 13:53 lisinopril Allergy Swelling Verified 02/19/20 13:53 of Lip/Tongue/Throat camphor AdvReac Intermediate SKIN Verified 02/19/20 13:53 IRRITATION WITH CHANDRA SALDANA gadobutrol AdvReac Intermediate SOB, Verified 02/19/20 13:53 HIVES, ITCHING, CHEST PAIN menthol AdvReac Intermediate SKIN Verified 02/19/20 13:53 IRRITATION WITH CHANDRA SALDANA methyl salicylate AdvReac Intermediate SKIN Verified 02/19/20 13:53 IRRITATION WITH CHANDRA SALDANA dapagliflozin [From Farxiga] AdvReac Rash Verified 02/19/20 13:53 mirtazapine [From Remeron] AdvReac Anxiety Verified 02/19/20 13:53 risperidone [From Risperdal] AdvReac Rash Verified 02/19/20 13:53 Carboxymethylcellulose AdvReac Intermediate SKIN Uncoded 02/19/20 13:53 IRRITATION WITH CHANDRA SALDANA Home Medications Home Medications Medication Instructions Recorded Confirmed Type amitriptyline 150 mg tablet 150 mg PO QPM 03/10/19 02/19/20 History fluoxetine 40 mg capsule 80 mg PO QAM cap 03/10/19 02/19/20 History fluticasone 100 mcg-salmeterol 50 1 puffs INH Q12H 03/10/19 02/19/20 History mcg/dose blistr powdr for inhalation fluticasone propionate 50 2 sprays INTNAS BID gm 03/10/19 02/19/20 History mcg/actuation nasal spray,suspension gabapentin 800 mg tablet 800 mg PO QID 03/10/19 02/19/20 History hydrochlorothiazide 25 mg tablet 25 mg PO QAM 03/10/19 02/19/20 History insulin lispro 100 unit/mL 12 units SQ TIDM 03/10/19 02/19/20 History subcutaneous cartridge losartan 50 mg tablet 50 mg PO QAM 03/10/19 02/19/20 History omeprazole 40 mg capsule,delayed 40 mg PO BID 03/10/19 02/19/20 History release pravastatin 20 mg tablet 20 mg PO QPM 03/10/19 02/19/20 History propranolol 10 mg tablet 20 mg PO BID 03/10/19 02/19/20 History tamsulosin 0.4 mg capsule 0.4 mg PO QPM cap 03/10/19 02/19/20 History exenatide microspheres 2 mg SUBCUT Q7D 09/30/19 02/19/20 History Cannibis 0 mg INHALATION UD PRN 12/15/19 02/19/20 History ipratropium bromide [Atrovent HFA] 2 puff INHALATION QID 12/15/19 02/19/20 History metformin 1,000 mg PO BID 12/15/19 02/19/20 History aspirin 81 mg PO QAM 02/19/20 02/19/20 History lorazepam 0.5 mg PO BID PRN 02/19/20 02/19/20 History tiotropium bromide [Spiriva with 1 cap INHALATION QAM 02/19/20 02/19/20 History HandiHaler] tramadol 50 mg PO Q6H PRN 02/19/20 02/19/20 History Lantus U-100 Insulin 50 unit SUBCUT HS #0 ml 02/20/20 02/19/20 Rx famotidine 20 mg PO BID #60 tab 02/20/20 Rx nicotine [Nicoderm CQ] 21 mg TRANSDERMAL HS #14 ea 02/20/20 Rx prednisone 40 mg PO DAILY #0 tab 02/20/20 02/19/20 Rx Patient History Medical History Acid reflux (Chronic) Anxiety Arthritis (Chronic) Cardiac murmur HX Chronic obstructive pulmonary disease Depression Diabetes (Chronic) Fibromyalgia (Chronic) Headache (Chronic) Heart disease (Chronic) High cholesterol (Chronic) History of hepatitis C (Resolved) TREATED-NO LONGER POSITIVE Hypertension (Chronic) Lumbago (Chronic) Meralgia paresthetica of both lower extremities (Acute) F/U DR KEELY GARZA GHS SOB (shortness of breath) on exertion STAIRS AND LONG DISTANCES FLAT SURFACES Temporal arteritis Tourette's (Chronic) Surgical History History of arthroscopy RIGHT KNEE History of colonoscopy History of esophagogastroduodenoscopy (EGD) Hx of hernia repair (Resolved) X 2 Social History Preferred Language: Danish Communication Ability: Effective Herb Grower Required: No Beliefs That Will Affect Care: Jain marital status: Current Living Situation: Spouse current occupational status: disabled Other Information That Helps Us Care for You: No Feels Safe at Home: Yes Safety Concerns: Feels Safe At This Time Smoking Status: Current every day smoker Tobacco Type: cigarettes ; Cigarettes Per Day: 40 ; Do You Dip or Chew Tobacco: No ; Second Hand Exposure: No ; Tobacco Cessation Education Requested by Patient: Yes Hx Alcohol Use: No Hx Substance Use: Yes substance use type: marijuana Substance Use Type Other:: SMOKES OR SUBLINGUAL MARIJUANA HS Last Used Substance: Days (ago) Physical Exam Physical Exam: Gen.: No acute distress. Alert and oriented. HEENT: Anicteric sclera. Neck: No JVD. No bruits. Normal carotid upstrokes bilaterally. Cardiac: PMI was nondisplaced. No ventricular heave. Regular rate and rhythm. Normal S1-S2. 1/6 systolic murmuer. No rubs, or gallops. Pulmonary: Clear to auscultation bilaterally without wheezes, rales, or rhonchi. Abdomen: Soft, nontender, nondistended, with normoactive bowel sounds. No bruits noted. Extremities: 2+ radial pulses bilaterally. 2+ posterior tibialis pulses bilaterally. Trace left pedal edema. No cyanosis. Psychiatric: Affect appears appropriate. Results & Data ([facility]) Vital Signs (Past 12 Hours) Vital Signs Temp Pulse Pulse Resp BP BP Pulse Ox 02/20/20 15:25 74 18 95 02/20/20 12:00 37 C 74 18 130/88 95 02/20/20 11:01 86 16 96 02/20/20 08:15 112/73 02/20/20 07:30 36.7 C 82 18 127/74 92 02/20/20 07:16 82 16 94 02/20/20 03:57 36.6 C 75 20 137/82 92 Laboratory Results Laboratory Results - last 24 hr 02/19/20 02/19/20 02/19/20 13:30 13:30 20:03 WBC RBC Hgb Hct MCV MCH MCHC RDW Std Deviation RDW Coeff of June Plt Count MPV ESR D-Dimer 230 Sodium Potassium Chloride Carbon Dioxide Anion Gap BUN Creatinine Est Cr Clr Drug Dosing Est GFR ( Amer) Est GFR (Non-Af Amer) BUN/Creatinine Ratio Glucose POC Glucose Estimat Average Glucose Hemoglobin A1c Calcium Total Bilirubin AST ALT Alkaline Phosphatase Troponin I < 0.015 NT-Pro-B Natriuret Pep 63 Total Protein Albumin Globulin Albumin/Globulin Ratio 02/19/20 02/20/20 02/20/20 20:39 03:50 03:50 WBC 11.57 H RBC 4.55 L Hgb 13.3 L Hct 41.2 L MCV 90.5 MCH 29.2 MCHC 32.3 RDW Std Deviation 53.6 H RDW Coeff of June 16.5 H Plt Count 177 MPV 8.9 ESR D-Dimer Sodium Potassium Chloride Carbon Dioxide Anion Gap BUN Creatinine Est Cr Clr Drug Dosing Est GFR ( Amer) Est GFR (Non-Af Amer) BUN/Creatinine Ratio Glucose POC Glucose 99 Estimat Average Glucose Hemoglobin A1c Calcium Total Bilirubin AST ALT Alkaline Phosphatase Troponin I < 0.015 NT-Pro-B Natriuret Pep Total Protein Albumin Globulin Albumin/Globulin Ratio 02/20/20 02/20/20 02/20/20 03:50 03:50 03:50 WBC RBC Hgb Hct MCV MCH MCHC RDW Std Deviation RDW Coeff of June Plt Count MPV ESR 62 H D-Dimer Sodium 139 Potassium 3.7 Chloride 98 Carbon Dioxide 35 H Anion Gap 6.0 BUN 10 Creatinine 0.90 Est Cr Clr Drug Dosing 108.2 Est GFR ( Amer) 110.3 Est GFR (Non-Af Amer) 95.1 BUN/Creatinine Ratio 11.2 Glucose 71 POC Glucose Estimat Average Glucose Pending Hemoglobin A1c Pending Calcium 9.4 Total Bilirubin 0.3 AST 44 H ALT 68 Alkaline Phosphatase 85 Troponin I NT-Pro-B Natriuret Pep Total Protein 6.8 Albumin 2.7 L Globulin 4.1 H Albumin/Globulin Ratio 0.7 L 02/20/20 02/20/20 08:01 11:41 WBC RBC Hgb Hct MCV MCH MCHC RDW Std Deviation RDW Coeff of June Plt Count MPV ESR D-Dimer Sodium Potassium Chloride Carbon Dioxide Anion Gap BUN Creatinine Est Cr Clr Drug Dosing Est GFR ( Amer) Est GFR (Non-Af Amer) BUN/Creatinine Ratio Glucose POC Glucose 73 118 H Estimat Average Glucose Hemoglobin A1c Calcium Total Bilirubin AST ALT Alkaline Phosphatase Troponin I NT-Pro-B Natriuret Pep Total Protein Albumin Globulin Albumin/Globulin Ratio Diagnostic Findings Telemetry personally reviewed: Sinus rhythm. No arrhythmia. ECHO personally reviewed: Echo 02/20/2020: Normal LV size, wall motion, systolic function. EF 55-60%. No significant valvular abnormalities. ECG personally reviewed: ECG 02/19/2020: Sinus rhythm 83 bpm. RBBB. LAFB. ECG 02/20/2020: Sinus rhythm [address] chest 02/20/2020: Mild bilateral lower lobe predominant tree-in-bud opacities and upper lobe predominant ground-glass opacities per Radiology. Mild emphysema. Medications Administered Current Inpatient Medications Acetaminophen (Tylenol) 650 mg PO Q4H PRN PRN Reason: Moderate Pain Stop: 03/20/20 18:34 Amitriptyline HCl (Elavil) 150 mg PO QPM [facility] Stop: 03/20/20 20:59 Last Admin: 02/19/20 21:01 Dose: 150 mg Documented by: Aspirin (Ecotrin Ectab) 81 mg PO QAM [facility] Stop: 03/21/20 08:59 Last Admin: 02/20/20 08:25 Dose: 81 mg Documented by: Dextrose (Dextrose 50%) 25 - 50 ml IV UD PRN; Protocol PRN Reason: Hypoglycemia Protocol Stop: 03/20/20 18:34 Famotidine (Pepcid) 20 mg PO BID [facility] Stop: 03/20/20 20:59 Last Admin: 02/20/20 08:25 Dose: 20 mg Documented by: Fluoxetine [facility]Prozac) [facility] [place] Stop: 03/21/20 08:59 Last Admin: 02/20/20 08:25 Dose: 80 mg Documented by: Fluticasone Propionate (Flonase) 2 sprays WERO BID [facility] Stop: 03/20/20 20:59 Last Admin: 02/20/20 08:26 Dose: 2 sprays Documented by: Fluticasone/Vilanterol (Breo Ellipta 100/25 Mcg Inh) 1 puffs INH DAILY [facility]; Protocol Stop: 03/21/20 08:59 Last Admin: 02/20/20 08:24 Dose: 1 puffs Documented by: Gabapentin (Neurontin) 800 mg PO QID [facility] Stop: 03/20/20 18:34 Last Admin: 02/20/20 12:18 Dose: 800 mg Documented by: Glucagon (Glucagen) 1 mg SQ UD PRN; Protocol PRN Reason: Hypoglycemia Protocol Stop: 03/20/20 18:34 Glucose (Dex4 Glucose) 4 - 8 tabs PO UD PRN; Protocol PRN Reason: Hypoglycemia Protocol Stop: 03/20/20 18:34 Glucose (Glucose 40%) 15 - 30 gm PO UD PRN; Protocol PRN Reason: Hypoglycemia Protocol Stop: 03/20/20 18:34 Hydrochlorothiazide (Hctz) [facility] [place] Stop: 03/21/20 08:59 Last Admin: 02/20/20 08:25 Dose: 25 mg Documented by: Insulin Aspart (Novolog Flexpen) 0 units SC ACHS [facility] Stop: 03/20/20 18:34 Last Admin: 02/20/20 12:05 Dose: 6 units Documented by: Insulin Glargine (Lantus) 40 units SC HS [facility] Stop: 03/21/20 20:59 Ipratropium Jefferson (Atrovent Hfa) 2 puffs INH QIDR ONEL[facility] Stop: 03/21/20 14:59 Lorazepam (Ativan) 0.5 mg PO BID PRN PRN Reason: Anxiety Stop: 03/20/20 18:34 Losartan Potassium (Cozaar) 50 mg PO QAM [facility] Stop: 03/21/20 08:59 Last Admin: 02/20/20 08:25 Dose: 50 mg Documented by: Miscellaneous (Order Awaiting Action) 1 ea N/A QS [facility] Stop: 03/21/20 00:00 Last Admin: 02/20/20 08:23 Dose: Not Given Documented by: Miscellaneous (Carbohydrates For Hypoglycemia) 15 - 30 gm PO UD PRN PRN Reason: Hypoglycemia Protocol Stop: 03/20/20 18:34 Miscellaneous (Remove Nicoderm Patch) 1 ea N/A DAILY@2058 [facility] Stop: 03/21/20 20:58 Nicotine (Nicoderm Cq) 21 mg TD HS [facility] Stop: 03/20/20 20:59 Last Admin: 02/19/20 21:02 Dose: 21 mg Documented by: Ondansetron HCl (Zofran) 4 mg IV Q4H PRN PRN Reason: Nausea And Vomiting Stop: 03/20/20 18:34 Pantoprazole Sodium (Protonix) 40 mg PO BID ON[facility] Stop: 03/20/20 20:59 Last Admin: 02/20/20 08:25 Dose: 40 mg Documented by: Pravastatin Sodium (Pravachol) 20 mg PO QPM [facility] Stop: 03/20/20 20:59 Last Admin: 02/19/20 21:01 Dose: 20 mg Documented by: Prednisone (Prednisone) 40 mg PO DAILY [facility] Stop: 03/21/20 08:59 Last Admin: 02/20/20 08:25 Dose: 40 mg Documented by: Propranolol HCl (Inderal) 20 mg PO BID [facility] Stop: 03/20/20 20:59 Last Admin: 05/10/20 08:25 Dose: 20 mg Documented by: Tamsulosin HCl (Flomax) 0.4 mg PO QPM [facility] Stop: 03/20/20 20:59 Last Admin: 02/19/20 21:02 Dose: 0.4 mg Documented by: Tramadol HCl (Ultram) 50 mg PO Q6H PRN PRN Reason: Pain Stop: 03/20/20 18:34 Last Admin: 02/19/20 21:15 Dose: 50 mg Documented by: Umeclidinium Jefferson (Incruse Ellipta) 1 puffs INH DAILY [facility] Stop: 03/21/20 08:59 Last Admin: 02/20/20 08:26 Dose: 1 puffs Documented by: PG Care Time/CCT Total # of Minutes Spent Total Time Spent with Patient: Total time spent is greater than 50% in coordination of care (as documented) at patient's floor/unit and/or counseling patient: Coding Level of Care Code 33230 Initial Inpt Care Lvl 3 Diagnoses Substernal chest pain R07.2 Tobacco use Z72.0 Hypertension I10
--- NOTE | 2020-02-20 15:42 | Discharge Summary ---
Date of Service February 20, 2020 Admission HPI Per Admitting Provider This is a 54-year-old male with PMHx of HTN, HLD, DM type II, suspected temporal arteritis on long-term steroids, COPD, tobacco use, history of hepatitis C now resolved, GERD, anxiety, depression, Tourette's syndrome, fibromyalgia who presents with acute crushing substernal and left-sided chest pain radiating to the back and up into the bilateral which occurred this morning and lasted for approximately 15 minutes. He was sitting at the computer session around 8 am when this occurred. He had not been previously doing anything strenuous and leads a fairly sedentary lifestyle. It went away with lying down to rest. He has had this happen before but not as extreme in the past, however the patient cannot quantify or name the timeframe. He denies any family history as he has only recently reconnected with his biological mother within the last 6 months, and the only thing he knows about his father is that "he left and is a complete dickhead". He does not know any biological siblings. He mentions that he has been being treated for a sinus infection for the last 3- 4 months, and has gone through 4 rounds of antibiotics. He is finishing his last day of Augmentin x10 days tonight. He reports there is no symptom improvement and still has a sore throat. He had a MRI of the brain conducted in the middle of December however this was negative for findings consistent with sinusitis. Patient also reports having other issues such as fibromyalgia and chronic pain at baseline. His anxiety has been much worse in light of COVID-19. Patient does not exercise at baseline. He smokes cigarettes 1.5 PPD x45 years and uses marijuana daily for anxiety, has a prescription for such. He has taken all his normally scheduled medication. Principal Diagnosis Atypical chest pain Discharge Exam Constitutional WD/WN, vitals as above + morbidly obese Eyes + anicteric sclerae; no eyelid abnormality ENMT external ear and nose normal, oropharynx normal Neck trachea midline, no thyromegaly Respiratory normal respiratory effort, lungs clear to auscultation Cardiovascular RRR, no murmur, no edema Chest (Breasts) Chest: normal inspection of chest Gastrointestinal (Abdomen) normal bowel sounds, soft, nontender, no hepatosplenomegaly Musculoskeletal Extremities: extremities normal to inspection; no cyanosis and no clubbing Skin no rashes, warm and dry Neurologic moves all extremities and awake; no focal motor deficits Psychiatric A+Ox3, euthymic affect Lymphatic no lymphedema Discharge Data Allergies Allergy/AdvReac Type Severity Reaction Status Date / Time penicillin V Allergy Intermediate Severe Verified 02/19/20 13:53 Itching. Iodinated Contrast Media Allergy Unknown Difficulty Verified 02/19/20 13:53 [Iodinated Contrast- Oral Breathing and IV Dye] Penicillins Allergy Unknown ITCHINESS Verified 02/19/20 13:53 lisinopril Allergy Swelling Verified 02/19/20 13:53 of Lip/Tongue/Throat camphor AdvReac Intermediate SKIN Verified 02/19/20 13:53 IRRITATION WITH CHADNRA SALDANA gadobutrol AdvReac Intermediate SOB, Verified 02/19/20 13:53 HIVES, ITCHING, CHEST PAIN menthol AdvReac Intermediate SKIN Verified 02/19/20 13:53 IRRITATION WITH CHANDRA SALDANA methyl salicylate AdvReac Intermediate SKIN Verified 02/19/20 13:53 IRRITATION WITH CHANDRA SALDANA dapagliflozin [From Farxiga] AdvReac Rash Verified 02/19/20 13:53 mirtazapine [From Remeron] AdvReac Anxiety Verified 02/19/20 13:53 risperidone [From Risperdal] AdvReac Rash Verified 02/19/20 13:53 Carboxymethylcellulose AdvReac Intermediate SKIN Uncoded 02/19/20 13:53 IRRITATION WITH CHANDRA SALDANA Consultations 02/19/20 15:21 ED Decision to Admit Stat 02/19/20 18:35 Consult Cardiology Routine Consult Case Management - Discharge Planning Routine Ordered Studies 02/19/20 19:40 CT sinus wo con Routine CT soft tissue neck wo con Routine 02/20/20 09:59 CT chest wo con Routine CXR ECHO Hospital Course (1) Chest pain: Atypical in nature but has a lot of risk factors for CAD-smoker, HTN, DMII, age, gender BNP and D-dimer both negative CXR nothing acute ECG with RBBB unchanged from previous ECHO without WMAs and preserved EF serial troponins negative, no events on tele Seen by Cardiology and pt agreeable to outpt Nuc Med stress given risk factors as above More likely secondary to esophageal spasm given severe GERD as below (2) Hypertension: BPs controlled -Continue aspirin 81 mg daily, losartan 50 mg, propranolol (3) High cholesterol: -Continue pravastatin 20 mg daily (4) Diabetes: -Type 2 - A1c here very out of control at 10.9% Worsened by very high dose prednisone for the last 2 months -continue metformin, lowered Lantus dose given that we are lowering dose of daily prednisone to 40mg -f/u closely with PCP (5) History of hepatitis C: -Resolved, treated. (6) Acid reflux: -Severe, with breakthrough symptoms despite bid prilosec -likely the cause of his sore throat more on the right side for many months (as opposed to infection for which he keeps getting antibiotics) -also c/o acid brash and reflux that wakes him from sleep -also now worsened by high dose prednisone therapy -advised addition of Pepcid 20mg po bid -continue Prilosec bid -advised weight loss -tapering down dose of prednisone -advised GERD diet and not lying down right after eating, and elevating head of bed -also advised nicotine cessation and cessation of tea/coffee/caffeine-containing products -f/u with PCP (7) Fibromyalgia: -Chronic - Smokes marijuana for chronic pain and anxiety daily, has prescription -continue ELavil 150mg qhs, tramadol prn (8) Temporal arteritis: Suspected dx in early December and started on prednisone 60mg but never had TA bx and no improvement in symptoms of headache, jaw pain -Having lot of side effects of prednisone, wants to taper down; has been on an extremely high dose for 2 months without much follow up given COVID -recommend outpt f/u with Rheum-he used to see Dr. Cazares in [place] -ESR here now lower than previous but remains elevated for age at 60 -reduce prednisone to 40mg daily and f/u as outpt -also recommend he be on PCP prophylaxis with Bactrim 3x/week while on high dose prednisone therapy but defer to his primary care physician (9) Anxiety: - Smokes marijuana for chronic pain and anxiety daily, has prescription -continue fluoxetine, ativan prn (10) Depression: -Continue fluoxetine 80 mg every morning (11) Chronic obstructive pulmonary disease: -Continue Spiriva, LABA/ICS, does not wear O2 at baseline -encouraged smoking cessation (12) Tobacco use: -Continues to smoke 1.5 pack/day, cessation was encouraged -he tolerated a nicotine patch -previously tried Chantix felt was worsening his depression. -prescribed nicotine patch on discharge (13) Morbid obesity with BMI of 40.0-44.9, adult: -Diet and exercise to be encouraged upon discharge - heart healthy/diabetic diet -BMI 40.6 (14) Sore throat: chronic for 4-6 months, more right sided Has taken multiple rounds of abx and does not have signs of infection Given prednisone use, morbid obesity, heavy smoking history, and h/o GERD, likely 2/2 acid reflux and/or allergic rhinitis -added on Pepcid 20mg bid -encouraged smoking cessation -continue PPI bid -f/u with ENT outpt -continue FLonase -checked CT neck given h/o heavy cigarette use-no significant abnormalities (15) Headache: chronic, not improved with high dose prednisone -taper down prednisone -tramadol prn f/u outpt has a h/o demyelinating lesions on MRI and has not been seen by Neuro in years- f/u with Neuro as outpt (16) Tourette's: -Chronic (17) Abnormal CT of the chest: with ground glass opacities seen and tree in bud opacities lower lobes COuld be from chronic reflux aspiration? Has ongoing dyspnea, not hypoxic -advise outpt f/u with PULM -treatment of reflux as above -also recommend PCP prophylaxis although doubt this recommends PCJ PNA (18) DVT prophylaxis: - teds CODE: Full code Dispo: stable for dc to home Total Time Total Time Spent Total Time Spent (In Minutes): 45 min Total Time Includes: Examination of the Patient, Discharge Planning, Medication Reconciliation and Communication With Other Providers (Cardiology) Discharge Plan Discharge Items Patient Disposition: Home - Self-Care Reason For Visit: CHEST PAIN, SHORTNESS OF BREATH Discharge Diagnosis: Chest pain, Sore throat from acid reflux Condition on Discharge: Fair Activity: Resume your previous activity Non-emergency contact: Primary Care Provider Call non-emergency contact if: you have any medication questions, your symptoms worsen, your pain is not controlled, your pain is worsening, your pain is unusual for you, your pain is concerning for you, you have a fever and your temperature is above 101 Follow-up/Referrals: José Osullivan DO [Primary Care Provider] - (Keep your follow up appointment with Dr. Osullivan as scheduled for this Friday.) Diet: Carb Consistent or DM2 and Heart Healthy Diet Comment: No spicy foods,avoid chocolate,tomato-based foods Addtl Attending Provider Instructions: You were admitted with chest pain and testing showed you did not have a heart attack. Because you have a lot of risk factors for heart disease, you should have a cardiac stress test as an outpatient. The Division Plant Engineer is setting you up for this and you should be contacted this week with the appointment date. Your chronic throat pain and shortness of breath may be from severe acid reflux. You were started on Pepcid 20mg twice a day for this. Your prednisone use and obesity, as well as smoking and caffeine use all can worsen this condition. Please try to quit smoking and cut down on your caffeine intake. Your prednisone was reduced to 40mg and you should follow up with your PCP and perhaps a Information Security for the suspected temporal arteritis. You can also elevate the head of your bed and make sure you do not lie down within an hour after eating. Weight loss can also help reduce your acid reflux. A CT scan of your neck and sinuses showed you do NOT have sinusitis and there are no masses in your throat. A CT scan of your chest did show some "tree in bud" opacities which may be from chronic reflux aspiration of your acid. Please follow up with your PCP and perhaps a Refrigeration Engineer for these abnormalities on your lungs. Best wishes, Dr. Amalia Juárez Hospitalist, [facility] Pending Studies at Discharge: No Stand-Alone Forms: [facility], Smoking Cessation Medications and DC Order Prescriptions: New nicotine [Nicoderm CQ] 21 mg/24 hr Patch 24 Hour 21 mg transdermal HS Qty: 14 RF: 3 famotidine 20 mg Tablet 20 mg PO BID Qty: 60 RF: 0 Continued fluticasone propion-salmeterol [Advair Diskus] 100-50 mcg/dose blister with device 1 puffs INH Q12H RF: 0 amitriptyline 150 mg tablet 150 mg PO QPM RF: 0 fluticasone propionate [Children's Flonase Allergy Rlf] 50 mcg/actuation spray,suspension 2 sprays INTNAS BID RF: 0 hydrochlorothiazide 25 mg tablet 25 mg PO QAM RF: 0 losartan 50 mg tablet 50 mg PO QAM RF: 0 tamsulosin [Flomax] 0.4 mg capsule 0.4 mg PO QPM RF: 0 fluoxetine [Prozac] 40 mg capsule 80 mg PO QAM RF: 0 propranolol 10 mg tablet 20 mg PO BID RF: 0 pravastatin 20 mg tablet 20 mg PO QPM RF: 0 omeprazole 40 mg capsule,delayed release(DR/EC) 40 mg PO BID RF: 0 gabapentin 800 mg tablet 800 mg PO QID RF: 0 Humalog U-100 Insulin 100 unit/mL cartridge 12 units SQ TIDM RF: 0 aspirin 81 mg Tablet,Delayed Release (Dr/Ec) 81 mg PO QAM RF: 0 tramadol 50 mg tablet 50 mg PO Q6H PRN (Reason: Pain) RF: 0 lorazepam 0.5 mg tablet 0.5 mg PO BID PRN (Reason: Anxiety) RF: 0 Spiriva with HandiHaler 18 mcg capsule, w/inhalation device 1 cap INHALATION QAM RF: 0 exenatide microspheres 2 mg/0.65 mL Pen Injector 2 mg SUBCUT Q7D RF: 0 metformin 500 mg tablet extended release 24 hr 1,000 mg PO BID RF: 0 Atrovent HFA 17 mcg/actuation Hfa Aerosol Inhaler 2 puff INHALATION QID RF: 0 Cannibis 0 mg inhalation UD PRN (Reason: Anxiety) RF: 0 Changed Lantus U-100 Insulin 100 unit/mL Solution 50 unit SUBCUT HS Qty: 0 RF: 0 prednisone 20 mg tablet 40 mg PO DAILY Qty: 0 RF: 0 Discharge Orders: Discharge Order (Routine); Ordered 02/20/20 Ordered By: Amalia Juárez Admission Data Admit Date/Time: 02/19/20 16:29 Attending Provider: Amalia Juárez Admit Provider: Amalia Juárez Primary Care Provider: José Osullivan Other Providers: Dustin Henning Other Interventions: Discharge Summary Assessment (RN) Last Done: 02/20/20 15:41 DC Date/Time DO NOT enter until pt leaves facility: 02/20/20 17:06 Coding Level of Care Code D/C Day Management >30 mins Diagnoses Chest pain R07.9 Hypertension I10 High cholesterol E78.00 Diabetes E11.9 History of hepatitis C Z86.19 Acid reflux K21.9 Fibromyalgia M79.7 Temporal arteritis M31.6 Anxiety F41.9 Depression F32.9 Chronic obstructive pulmonary disease J44.9 Tobacco use Z72.0 Morbid obesity with BMI of 40.0-44.9, adult E66.01; Z68.41 Sore throat J02.9 Headache R51 Tourette's F95.[address] of the chest R93.89 DVT prophylaxis Z29.9
[2020-02-20] MEDS ORDERED: INSULIN GLARGINE 100 UNIT/ML VIAL SC SCH (21:00)
--- NOTE | 2020-02-20 23:05 | Electrocardiogram Report ---
Test Reason : Blood Pressure : / mmHG Vent. Rate : 084 BPM Atrial Rate : 084 BPM P-R Int : 162 ms QRS Dur : 128 ms QT Int : 380 ms P-R-T Axes : 065 -65 053 degrees QTc Int : 449 ms Normal sinus rhythm Right bundle branch block Left anterior fascicular block Bifascicular block Abnormal ECG When compared with ECG of 19-FEB-2020 13:18, No significant change was found Confirmed by Dustin Henning ([id number]) on 02/20/2020 11:05:30 PM Referred By: REFERRED SELF Confirmed By:Dustin Henning
[2020-02-21 05:48] LABS: Estimated Average Glucose 266 mg/dl; Hemoglobin A1C 10.9 % (4.5-5.6)
== END 2020-02-20 17:06 | disposition home or self-care (01) | DRG 313 ==
LOC: ED 13:02 → 2W 16:29
DX: J30.9 Allergic rhinitis, unspecified; Z79.82 Long term (current) use of aspirin; Z88.8 Allergy status to other drugs, medicaments and biological substances; Z86.19 Personal history of other infectious and parasitic diseases; M79.7 Fibromyalgia; E11.9 Type 2 diabetes mellitus without complications; I45.2 Bifascicular block; J44.9 Chronic obstructive pulmonary disease, unspecified; R07.2 Precordial pain; F32.9 Major depressive disorder, single episode, unspecified; Z79.51 Long term (current) use of inhaled steroids; I10 Essential (primary) hypertension; Z79.899 Other long term (current) drug therapy; Z91.041 Radiographic dye allergy status; Z79.52 Long term (current) use of systemic steroids; Z88.0 Allergy status to penicillin; Z79.4 Long term (current) use of insulin; E66.01 Morbid (severe) obesity due to excess calories; F17.210 Nicotine dependence, cigarettes, uncomplicated; K21.9 Gastro-esophageal reflux disease without esophagitis; F95.2 Tourette's disorder; E78.5 Hyperlipidemia, unspecified; J31.2 Chronic pharyngitis; F41.9 Anxiety disorder, unspecified; M31.6 Other giant cell arteritis; Z68.41 Body mass index [BMI] 40.0-44.9, adult